=== PATIENT | male | born 1975 | race Caucasian/White ===

== ENCOUNTER 2016-12-01 16:04 | Emergency (ER) | payer BC, MEDICAID ==
--- NOTE | 2016-12-01 16:09 | EDPHY ---
H & P Time Seen by Provider: 12/01/16 16:08 HPI/ROS: CHIEF COMPLAINT: Right-sided chest pain HISTORY OF PRESENT ILLNESS: Developed right-sided chest pain last week and was seen by his primary care physician put him on a short burst of prednisone for his asthma. Presents today with worsening right-sided chest pain which does not radiate. Mildly pleuritic. Not associated with cough or fever or syncope. Arrives by EMS having gotten fentanyl in the field which improved his pain. Symptoms were moderate to severe before and mild now. He describes intermittently over the past 48 hours a feeling of sudden shortness of breath with diaphoresis and panic which then resolved after a couple of minutes. REVIEW OF SYSTEMS: Eye: no change in vision ENT: no sore throat Cardiac: HPI Pulmonary: no cough or SOB Abdomen: no vomiting, diarrhea, abdominal pain Musculoskeletal: Had leg swelling which was bilateral for the past 2 months which then resolved his prior to his chest pain starting. Skin: no rash Neuro: no headache Constitutional: no fever : no urinary symptoms A comprehensive 10 point review of systems is otherwise negative aside from elements mentioned in the history of present illness. PAST MEDICAL HISTORY: Asthma, remote ankle surgery. Social history: Lives in [place], PCP is [facility]. Negative for cocaine or premature history of cardiac disease. Negative for family history of venous thromboembolism. General Appearance: Alert and conversant, cooperative. Eyes: No scleral icterus. ENT, Mouth: Normal mucous membranes. Respiratory: Normal respiratory effort, breath sounds equal, lungs are clear to auscultation. No wheezing auscultated. Cardiovascular: Regular rate and rhythm. Symmetric radial pulses. Gastrointestinal: Abdomen is soft and non tender. Neurological: Alert and oriented x3. Normally conversant. Face symmetric, normal movement and sensation in all extremities. Skin: Warm and dry, no rashes. Musculoskeletal: No peripheral edema and no joint swelling. Psychiatric: Not agitated. Emergency Department course/MDM: 1623: Chest x-ray personally interpreted is negative, results discussed with the patient at this time. Await EKG D-dimer and troponin. 1647: D-dimer negative, pretest probability low for pulmonary embolism. Likely muscular or inflammatory chest pain with intermittent hyperventilation or panic. Results discussed with the patient and family at this time. Symptomatic treatment. Constitutional: Initial Vital Signs Temperature (C) 36.6 C 12/01/16 16:10 Heart Rate 67 12/01/16 16:10 Respiratory Rate 18 12/01/16 16:10 Blood Pressure 144/102 H 12/01/16 16:10 O2 Sat (%) 97 12/01/16 16:10 O2 Delivery Mode Room Air Allergies/Adverse Reactions: clindamycin Allergy (Verified 12/01/16 16:09) Penicillins Allergy (Verified 12/01/16 16:09) Home Medications: Medication Instructions Recorded Flonase Nasal [place] 12/01/16 Flovent 220 MCG Hfa MDI (*) 12/01/16 Proair Hfa 12/01/16 Singulair 12/01/16 Medical Decision Making - Diagnostics EKG Interpretation: 12-lead EKG interpreted by me; official reading is in trace master. My interpretation is sinus rhythm rate 67 no acute ischemic changes. Imaging Results: Imaging Impressions Chest X-Ray 12/01/16 16:08 Impression: No acute thoracic abnormality. Differential Diagnosis: Differential diagnosis considered for chest pain including but not limited to myocardial ischemia, aortic dissection, pericarditis, pulmonary embolus, chest wall pain, pleural inflammation and pulmonary infectious causes. - Data Points Laboratory Results: Laboratory Results 12/01/16 16:15 12/01/16 16:15 12/01/16 12/01/16 12/01/16 16:15 16:15 16:15 WBC 7.17 10^3/uL 10^3/uL (3.80-9.50) RBC 5.69 10^6/uL 10^6/uL (4.40-6.38) Hgb 17.2 g/dL g/dL (13.7-17.5) Hct 48.1 % % (40.0-51.0) MCV 84.5 fL fL (81.5-99.8) MCH 30.2 pg pg (27.9-34.1) MCHC 35.8 g/dL g/dL (32.4-36.7) RDW 11.9 % % (11.5-15.2) Plt Count 232 10^3/uL 10^3/uL (150-400) MPV 10.4 fL fL (8.7-11.7) Neut % (Auto) 58.9 % % (39.3-74.2) Lymph % (Auto) 33.8 % % (15.0-45.0) [place] % (Auto) 5.3 % % (4.5-13.0) Eos % (Auto) 1.0 % % (0.6-7.6) Baso % (Auto) 0.7 % % (0.3-1.7) Nucleat RBC Rel Count 0.0 % % (0.0-0.2) Absolute Neuts (auto) 4.23 10^3/uL 10^3/uL (1.70-6.50) Absolute Lymphs (auto) 2.42 10^3/uL 10^3/uL (1.00-3.00) Absolute Monos (auto) 0.38 10^3/uL 10^3/uL (0.30-0.80) Absolute Eos (auto) 0.07 10^3/uL 10^3/uL (0.03-0.40) Absolute Basos (auto) 0.05 10^3/uL 10^3/uL (0.02-0.10) Absolute Nucleated RBC 0.00 10^3/uL 10^3/uL (0-0.01) Immature Gran % 0.3 % % (0.0-1.1) Immature Gran # 0.02 10^3/uL 10^3/uL (0.00-0.10) D-Dimer < 0.27 ug/mLFEU ug/mLFEU (0.00-0.50) Sodium 138 mEq/L mEq/L (134-144) Potassium 3.5 mEq/L mEq/L (3.5-5.2) Chloride 103 mEq/L mEq/L (97-110) Carbon Dioxide 19 mEq/l L mEq/l (22-31) Anion Gap 16 mEq/L mEq/L (8-16) BUN 17 mg/dL mg/dL (7-23) Creatinine 0.9 mg/dL mg/dL (0.7-1.3) Estimated GFR > 60 Glucose 69 mg/dL L mg/dL (70-100) Calcium 9.6 mg/dL mg/dL (8.5-10.4) Troponin I < 0.012 ng/mL ng/mL (0.000-0.034) Departure - Departure Disposition: Home, Routine, Self-Care Clinical Impression: Right-sided chest pain Condition: Good Instructions: Chest Pain (ED) Additional Instructions: EKG and troponin test are normal, normal chest x-ray. D-dimer test is negative. Ibuprofen 600 mg by mouth every 8 hours for the next 2-3 days. Please return if you get worsening symptoms fever or new problems. Referrals: Nicholas Layne MD [Primary Care Provider] - As per Instructions
[2016-12-01 16:13] VITALS: PULSE 67; TEMP 97.9
[2016-12-01 16:32] LABS: % IMMATURE GRANULYOCYTES 0.3 % (0.0-1.1); ABSOLUTE IMMATURE GRANULOCYTES 0.02 10^3/uL (0.00-0.10); ADD DIFF? NO; ADD MORPH? NO; ADD SCAN? NO; ATYPICAL LYMPHOCYTE FLAG 10 (0-99); FRAGMENT RBC FLAG 0 (0-99); HEMATOCRIT 48.1 % (40.0-51.0); HEMOGLOBIN 17.2 g/dL (13.7-17.5); LEFT SHIFT FLG 0 (0-99); LIPEMIA HEMOLYSIS FLAG 90 (0-99); MEAN CELL HEMOGLOBIN 30.2 pg (27.9-34.1); MEAN CELL HEMOGLOBIN CONCENTR. 35.8 g/dL (32.4-36.7); MEAN CELL VOLUME 84.5 fL (81.5-99.8); MEAN PLATELET VOLUME 10.4 fL (8.7-11.7); PLATELET CLUMPS FLAG 30 (0-99); PLATELET COUNT 232 10^3/uL (150-400); RED BLOOD CELL COUNT 5.69 10^6/uL (4.40-6.38); RED CELL DISTRIBUTION WIDTH 11.9 % (11.5-15.2)
[2016-12-01 16:42] LABS: ANION GAP 16 mEq/L (8-16); CALCIUM 9.6 mg/dL (8.5-10.4); CARBON DIOXIDE 19 mEq/l (22-31); CHLORIDE 103 mEq/L (97-110); CREATININE 0.9 mg/dL (0.7-1.3); GLOMERULAR FILTRATION RATE > 60; GLUCOSE 69 mg/dL (70-100); POTASSIUM 3.5 mEq/L (3.5-5.2); SODIUM 138 mEq/L (134-144)
--- NOTE | 2016-12-01 16:42 | CPEKG ---
Heart Rate: 67 RR Interval: 896 P-R Interval: 140 QRSD Interval: 84 QT Interval: 440 QTC Interval: 465 P [place]: 67 QRS [place]: 42 T Wave [place]: 42 EKG Severity - NORMAL ECG - EKG Impression: SINUS RHYTHM Electronically Signed By: Reuben Astorga 01-Dec-2016 16:43:18
[2016-12-01 16:53] LABS: TROPONIN I < 0.012 ng/mL (0.000-0.034)
[2016-12-01 17:21] VITALS: BP 119/85; RESP 16; O2SAT 95
== END 2016-12-01 17:21 | disposition home or self-care (01) ==
LOC: EDUNIT#
DX: R07.9 Chest pain, unspecified (principal); J45.909 Unspecified asthma, uncomplicated

== ENCOUNTER 2016-12-03 13:15 | Emergency (ER) | payer MEDICAID ==
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
--- NOTE | 2016-12-03 13:49 | CPEKG ---
Heart Rate: 59 RR Interval: 1017 P-R Interval: 144 QRSD Interval: 86 QT Interval: 436 QTC Interval: 432 P [place]: 50 QRS [place]: 62 T Wave [place]: 56 EKG Severity - NORMAL ECG - EKG Impression: SINUS RHYTHM Electronically Signed By: Sarkis Iyer 03-Dec-2016 20:35:31
[2016-12-03 14:15] LABS: % IMMATURE GRANULYOCYTES 0.1 % (0.0-1.1); ABSOLUTE IMMATURE GRANULOCYTES 0.01 10^3/uL (0.00-0.10); ADD DIFF? NO; ADD MORPH? NO; ADD SCAN? NO; ATYPICAL LYMPHOCYTE FLAG 0 (0-99); FRAGMENT RBC FLAG 0 (0-99); HEMATOCRIT 48.6 % (40.0-51.0); HEMOGLOBIN 17.4 g/dL (13.7-17.5); LEFT SHIFT FLG 0 (0-99); LIPEMIA HEMOLYSIS FLAG 90 (0-99); MEAN CELL HEMOGLOBIN 30.4 pg (27.9-34.1); MEAN CELL HEMOGLOBIN CONCENTR. 35.8 g/dL (32.4-36.7); MEAN CELL VOLUME 84.8 fL (81.5-99.8); MEAN PLATELET VOLUME 9.6 fL (8.7-11.7); PLATELET CLUMPS FLAG 0 (0-99); PLATELET COUNT 252 10^3/uL (150-400); RED BLOOD CELL COUNT 5.73 10^6/uL (4.40-6.38); RED CELL DISTRIBUTION WIDTH 11.8 % (11.5-15.2)
[2016-12-03 14:26] LABS: ANION GAP 14 mEq/L (8-16); CALCIUM 9.4 mg/dL (8.5-10.4); CARBON DIOXIDE 21 mEq/l (22-31); CHLORIDE 103 mEq/L (97-110); CREATININE 0.9 mg/dL (0.7-1.3); GLOMERULAR FILTRATION RATE > 60; GLUCOSE 82 mg/dL (70-100); SODIUM 138 mEq/L (134-144)
[2016-12-03 14:38] LABS: TROPONIN I < 0.012 ng/mL (0.000-0.034)
[2016-12-03 15:26] VITALS: BP 150/88; PULSE 72; RESP 16; TEMP 98.2; O2SAT 96
== END 2016-12-03 15:26 | disposition home or self-care (01) ==
LOC: EDUNIT#
DX: T58.91XA Toxic effect of carbon monoxide from unspecified source, accidental (unintentional), initial encounter (principal); F41.9 Anxiety disorder, unspecified; J45.909 Unspecified asthma, uncomplicated; Z87.891 Personal history of nicotine dependence